=== PATIENT | male | born 1965 | race Two or more races ===

== ENCOUNTER 2020-05-10 20:06 | Emergency (ER) | payer OTHER ==
[~2020-05-10] VITALS: Ht 167.6 cm; Wt 85.7 kg
[2020-05-10] MEDS ORDERED: HYDROcodone/APAP 5/325 TABLET ONE (20:24)
[2020-05-10] MEDS ORDERED: HYDROcodone/APAP 5/325 TABLET PO ONE (20:30)
[2020-05-10 21:06] VITALS: BP 161/77
== END 2020-05-10 21:07 | disposition home or self-care (01) ==
LOC: ED 21:00
DX: K02.9 Dental caries, unspecified (principal)
CPT/HCPCS: 99283

== ENCOUNTER 2020-07-05 10:58 | Inpatient (IN) | payer OTHER ==
[~2020-07-05] VITALS: Ht 170.2 cm; Wt 75.7 kg
[2020-07-05] MEDS ORDERED: ACETAMINOPHEN 500 MG TABLET ONE (11:26)
[2020-07-05] MEDS ORDERED: ACETAMINOPHEN 500 MG TABLET PO ONE (11:30)
--- NOTE | 2020-07-05 11:59 | NUR ---
first contact with pt, started large bore iv, 2nd set bc drawn and sent. pt c/o body aches temp is 103.4 took tylenol 1 hour ago. requested order for meds from [facility].
[2020-07-05 12:03] LABS: MICROSCOPIC NOT IND
[2020-07-05 12:13] LABS: ALANINE AMINOTRANSFERASE 27 U/L (12-78); ALBUMIN 2.9 g/dL (3.4-5.0); ANION GAP 9 mmol/L (5-15); CALCIUM 9.2 mg/dL (8.5-10.1); CHLORIDE 100 mmol/L (98-107)
--- NOTE | 2020-07-05 12:14 | NUR ---
PT CAME IN CO OF BILAT FLANK PAIN X 2-3 DAYS. PT DENIES TRAUMA OR PAINFUL URINATION. PT RESTING IN [facility]. MEDICATED PER NOV. UA SENT. LABS SENT. BLANKET PROVIDED.
[2020-07-05 12:15] LABS: ALKALINE PHOSPHATASE 198 U/L (45-117); BILIRUBIN,TOTAL 0.7 mg/dL (0.2-1.0); CREATININE 0.99 mg/dL (0.7-1.3); TOTAL PROTEIN 7.5 g/dL (6.4-8.2)
[2020-07-05 12:29] LABS: BASOPHILS % (AUTO) 0 % (0-1); EOSINOPHILS % (AUTO) 0 % (1-7); LYMPHOCYTES % (AUTO) 14 % (22-44); MEAN CORPUSCULAR HEMOGLOBIN 31.7 pg (27.5-34.5); MEAN CORPUSCULAR HGB CONC 34.7 g/dL (33.2-36.2); MEAN PLATELET VOLUME 7.8 fL (7.4-10.4); MONOCYTES % (AUTO) 7 % (2-9); NEUTROPHILS % (AUTO) 79 % (42-75); PLATELET COUNT 181 x10^3/uL (130-400); RED BLOOD COUNT 5.54 x10^6/uL (4.38-5.82)
--- NOTE | 2020-07-05 12:46 | NUR ---
lactate back elevated, ivf wide open bag #1. requested abx from provided. vss
[2020-07-05 12:53] LABS: MD SCAN
[2020-07-05] MEDS ORDERED: CEFTRIAXONE PMX 1GM/50ML 50 ML ONE (12:57)
--- NOTE | 2020-07-05 13:03 | NUR ---
abx started, 2 sets bc already drawn and sent. 2nd liter of fluid bolus wide open, pt vs remain stable. will continue to monitor.
[2020-07-05] MEDS ORDERED: POTASSIUM CHLORIDE 20 MEQ TAB.ER.PRT ONE (13:37)
--- NOTE | 2020-07-05 13:43 | NUR ---
PCXR DONE. ADMIN OF KDUR DONE, NO SWALLOWING PROBLEMS. VSS. WILL CONTINUE TO MONITOR.
[2020-07-05] MEDS ORDERED: POTASSIUM CHLORIDE 20 MEQ TAB.ER.PRT PO ONE (14:00)
[2020-07-05] MEDS ORDERED: CEFTRIAXONE PMX 1GM/50ML 50 ML IVPB ONE (14:00)
[2020-07-05] MEDS ORDERED: SODIUM CHLORIDE 0.9% 1,000ML IVBOLUS ONE (14:00)
[2020-07-05] MEDS ORDERED: AZITHROMYCIN 500 MG in SODIUM CHLORIDE 0.9% 250 ML IV ONE (14:30)
--- NOTE | 2020-07-05 14:44 | NUR ---
iso cart and proper sign placement to outside of room. CN notified of covid pos status.
--- NOTE | 2020-07-05 14:50 | NUR ---
[phone] Daughter Shraddha [phone]
--- NOTE | 2020-07-05 14:58 | NUR ---
VSS, states feels a little better. 2nd abx infusing over hour. updated of covid pos status and re: policy on visitation.
[2020-07-05] MEDS ORDERED: ENALAPRILAT 1.25 MG/ML, 2ML IVPush PRN (16:30)
[2020-07-05] MEDS ORDERED: ONDANSETRON 2MG/ML, 2ML IVPush PRN (16:30)
[2020-07-05] MEDS ORDERED: ONDANSETRON ODT 4 MG PO PRN (16:30)
--- NOTE | 2020-07-05 16:34 | NUR ---
FAMILY CONTACT DAUGHTER ANUP [phone] WANTS HOSPITALIST TO CALL HER WITH POC.
--- NOTE | 2020-07-05 17:01 | NUR ---
NO CHANGE IN ASSESSMENT, WAITING FOR HOSPITALIST ADMIT.
[2020-07-05] MEDS ORDERED: DEXTROSE 50%, 50ML SYRINGE IVPush PRN (17:30)
[2020-07-05] MEDS ORDERED: DEXTROSE 4 GM TAB.CHEW PO PRN (17:30)
[2020-07-05] MEDS ORDERED: GLUCAGON 1 MG IM PRN (17:30)
--- NOTE | 2020-07-05 17:36 | NUR ---
HOSPITALIST SPOKE WITH /FAMILY VIA TRANSLATION.
--- NOTE | 2020-07-05 17:37 | NUR ---
UPDATED ON POLICIES RE: NO VISITATION.
--- NOTE | 2020-07-05 17:42 | NUR ---
pt dinner arrived, he is eating without any problems. vss. awaiting admission.
[2020-07-05 18:04] LABS: HCT (SEDRATE) 47.9 % (39.2-51.8)
[2020-07-05 18:10] LABS: INTERNATIONAL NORMALIZED RATIO 0.92 (0.93-1.1); PROTHROMBIN TIME 9.5 Seconds (9.6-11.5)
[2020-07-05] MEDS ORDERED: ACETAMINOPHEN 325 MG TABLET ONE (19:12)
[2020-07-05] MEDS: ACETAMINOPHEN 325 MG TABLET PO PRN (19:16)
--- NOTE | 2020-07-05 20:33 | NUR ---
ASSUMED CARE OF PT, ASSISTED PT TO BSC. VSS. CALL LIGHT WITHIN REACH.
--- NOTE | 2020-07-05 22:00 | NUR ---
REQUESTED INSULIN PEN FROM PHARMACY.
[2020-07-05] MEDS: INSULIN LISPRO 100 UNITS/ML, PEN SQ-INSULIN SCH (22:45)
--- NOTE | 2020-07-05 23:01 | NUR ---
REPORT GIVEN TO CEE ESPARZA.
--- NOTE | 2020-07-05 23:12 | NUR ---
Report recevied from VILMA Marti. This RN to assume care. Patient sleeping in hospital bed. REspirations even and unlabored.
[2020-07-05] MEDS: SODIUM CHLORIDE FLUSH 10ML SYR IVF SCH (23:13)
--- NOTE | 2020-07-06 02:20 | NUR ---
Patient resting in hospital bed with no complaints. Water provided.
--- NOTE | 2020-07-06 05:27 | NUR ---
Meal tray ordered.
--- NOTE | 2020-07-06 06:00 | NUR ---
Provided water. Patient has no other needs.
--- NOTE | 2020-07-06 06:55 | NUR ---
Report given to VILAM Bender. Patient care transferred.
--- NOTE | 2020-07-06 07:54 | NUR ---
RECIEVED REPORT FROM MIGUEL SHINE RN. PT RESTING IN BED. NADN. KAMARA. AWARE OF POC ON ADMISSION TO COVID UNIT.
[2020-07-06] MEDS: SODIUM CHLORIDE FLUSH 10ML SYR IVF SCH ×2 (07:55→21:18)
[2020-07-06] MEDS: INSULIN LISPRO 100 UNITS/ML, PEN SQ-INSULIN SCH ×4 (08:45→21:25)
--- NOTE | 2020-07-06 09:03 | NUR ---
PT MEDICATED PER NOV. PROVIDED W/ BREAKFAST TRAY.
--- NOTE | 2020-07-06 09:14 | NUR ---
REPORT GIVEN TO VILMA NAVARRETE.
--- NOTE | 2020-07-06 09:15 | NUR ---
report received from VILMA Bender, this RN assuming care.
--- NOTE | 2020-07-06 10:15 | NUR ---
PT RESTING ON HOSPITAL BED, RESPS EVEN AND UNLABORED, PT SPEAKING TO FAMILY/FRIEND ON PHONE WITHOUT DIFFICULTY. PT IS SINUS TACH RATE 90'S ON [employer] MANAGER WITH NO ECTOPY NOTED.
--- NOTE | 2020-07-06 11:00 | NUR ---
DR. FISCHER DISCUSSED WITH PT TO START TREATMENT OF COVID WITH REMDESEVIR, PT AGREED WITH TREATMENT PLAN, THIS RN WAS PRESENT DURING DISCUSSION.
--- NOTE | 2020-07-06 11:00 | NUR ---
PT'S SON UPDATED , SHAHEED. PHONE [phone]
--- NOTE | 2020-07-06 11:00 | NUR ---
report given to RN Figueroa at bedside, pt a&o, resps even and unlabored, cris.
--- NOTE | 2020-07-06 11:20 | NUR ---
REPORT FROM ROSALBA ESPARZA.
[2020-07-06] MEDS ORDERED: SENNOSIDES 8.6 MG TABLET PO PRN (11:30)
[2020-07-06] MEDS: ENOXAPARIN 40 MG/0.4 ML SQ SCH (11:30)
--- NOTE | 2020-07-06 12:04 | NUR ---
PT IN MRI.
[2020-07-06] MEDS ORDERED: ENOXAPARIN 40 MG/0.4 ML ONE (12:13)
[2020-07-06] MEDS ORDERED: THIAMINE 100MG TABLET ONE ×2 (12:13→20:48)
[2020-07-06] MEDS ORDERED: DEXAMETHASONE 4 MG/ML, 1ML ONE (12:13)
[2020-07-06] MEDS ORDERED: GADOTERATE 10 MMOL/20 ML SYR ONE (12:31)
--- NOTE | 2020-07-06 12:52 | NUR ---
PT'S RA SATURATION IS 85%, CHECKED PER MD ORDER. PLACED BACK ON 4L NC, PT SATURATION UP TO 93%.
[2020-07-06] MEDS ORDERED: ACETAMINOPHEN 325 MG TABLET ONE (12:54)
[2020-07-06] MEDS: ACETAMINOPHEN 325 MG TABLET PO PRN (12:59)
[2020-07-06] MEDS: DEXAMETHASONE 4 MG/ML, 1ML IVPush SCH (13:01)
[2020-07-06] MEDS: AZITHROMYCIN 500 MG in SODIUM CHLORIDE 0.9% 250 ML IV SCH (13:02)
[2020-07-06] MEDS: THIAMINE 100MG TABLET PO SCH ×2 (13:02→21:18)
--- NOTE | 2020-07-06 13:35 | NUR ---
CALL TO DR. FISCHER FOR UPDATE, REPORTED TO PT HAS FEVER OF 101.3 AND RA SAT DOWN TO 85% AND NOW REQUIRING 6L O2 NC. PER DR. FICSHER ORDER STAT ABG. ORDER VERIFIED AND PLACED.
[2020-07-06 13:53] LABS: BASOPHILS % (AUTO) 1 % (0-1); EOSINOPHILS % (AUTO) 0 % (1-7); LYMPHOCYTES % (AUTO) 27 % (22-44); MEAN CORPUSCULAR HEMOGLOBIN 31.3 pg (27.5-34.5); MEAN CORPUSCULAR HGB CONC 34.8 g/dL (33.2-36.2); MEAN PLATELET VOLUME 7.2 fL (7.4-10.4); MONOCYTES % (AUTO) 8 % (2-9); NEUTROPHILS % (AUTO) 65 % (42-75); PLATELET COUNT 202 x10^3/uL (130-400); RED BLOOD COUNT 4.94 x10^6/uL (4.38-5.82); RED CELL DISTRIBUTION WIDTH 13.1 % (9.4-14.8)
[2020-07-06 13:56] LABS: MD NO
[2020-07-06 13:57] LABS: ANION GAP 10 mmol/L (5-15); CALCIUM 8.7 mg/dL (8.5-10.1); CHLORIDE 102 mmol/L (98-107); CREATININE 0.61 mg/dL (0.7-1.3)
[2020-07-06] MEDS ORDERED: REMDESIVIR 200 MG in SODIUM CHLORIDE 0.9% 250 ML IVPB ONE (14:00)
[2020-07-06 14:03] LABS: D-DIMER 0.31 ug/mlFEU (0.00-0.52)
[2020-07-06 15:40] LABS: HCT (SEDRATE) 44.5 % (39.2-51.8)
[2020-07-06] MEDS: CHOLECALCIFEROL 5,000u TAB PO SCH (16:04)
--- NOTE | 2020-07-06 16:20 | NUR ---
CALL TO CT DEPT, PT'S IV MEDS FINISHED INFUSING AND OKAY FOR PT TO GO FOR CT.
--- NOTE | 2020-07-06 16:50 | NUR ---
PT TRANSPORTED TO CT.
[2020-07-06] MEDS ORDERED: OMNIPAQUE 350 MG/ML, 100ML BOTTLE ONE (17:14)
[2020-07-06] MEDS ORDERED: CEFTRIAXONE PMX 1GM/50ML 50 ML ONE (17:19)
[2020-07-06] MEDS: CEFTRIAXONE PMX 1GM/50ML 50 ML IV SCH (17:23)
--- NOTE | 2020-07-06 17:57 | NUR ---
Bird vann in [facility] - 07/06/20 at 1758 by DANIELLA TASK RN: MEDICATION REQUEST SENT TO PHARMACY. PT WITH NO NEEDS AT THIS TIME
--- NOTE | 2020-07-06 17:58 | NUR ---
TASK RN: MEDICATION REQUEST SENT TO PHARMACY. PT WITH NO NEEDS AT THIS TIME
[2020-07-06] MEDS: ASCORBIC ACID 500 MG TABLET PO SCH (19:27)
--- NOTE | 2020-07-06 20:01 | NUR ---
VALENTINA TIMMONS [phone], WILL CALL FOR UPDATE TOMORROW, WOULD LIKE A CALL WHEN PT TRANSFERS.
--- NOTE | 2020-07-06 22:54 | NUR ---
REPORT RECEIVED FROM VILMA PISANO. PLAN OF CARE DISCUSSED
--- NOTE | 2020-07-07 00:04 | NUR ---
PATIENT SLEEPING, RESPIRATIONS EVEN AND UNLABORED. VSS, NADN, MONITORING IN PLACE, CALL LIGHT IN REACH
--- NOTE | 2020-07-07 01:00 | NUR ---
PATIENT SLEEPING, RESPIRATIONS EVEN AND UNLABORED. VSS, NADN, MONITORING IN PLACE, CALL LIGHT IN REACH
--- NOTE | 2020-07-07 02:15 | NUR ---
PATIENT SLEEPING, RESPIRATIONS EVEN AND UNLABORED. VSS, NADN, MONITORING IN PLACE, CALL LIGHT IN REACH. REMDESIVIR RESTARTED IT WAS NOT INFUSING. APPROX 50ML LEFT IN BAG
--- NOTE | 2020-07-07 02:53 | NUR ---
Report received from VILMA Diez. This RN to assume care.
--- NOTE | 2020-07-07 03:14 | NUR ---
Patient sleeping in hospital bed. Respirations even and unlabored. No interventions needed at this time.
[2020-07-07] MEDS ORDERED: PANTOPRAZOLE 20MG TABLET ONE (03:25)
[2020-07-07 05:29] LABS: BASOPHILS % (AUTO) 0 % (0-1); EOSINOPHILS % (AUTO) 0 % (1-7); LYMPHOCYTES % (AUTO) 30 % (22-44); MEAN CORPUSCULAR HEMOGLOBIN 31.8 pg (27.5-34.5); MEAN CORPUSCULAR HGB CONC 34.9 g/dL (33.2-36.2); MEAN PLATELET VOLUME 7.4 fL (7.4-10.4); MONOCYTES % (AUTO) 11 % (2-9); NEUTROPHILS % (AUTO) 58 % (42-75); PLATELET COUNT 231 x10^3/uL (130-400); RED CELL DISTRIBUTION WIDTH 13.2 % (9.4-14.8)
[2020-07-07 05:31] LABS: MD NO
[2020-07-07 05:38] LABS: ANION GAP 8 mmol/L (5-15); CHLORIDE 105 mmol/L (98-107)
[2020-07-07] MEDS: PANTOPRAZOLE 40MG TABLET PO SCH (05:53)
--- NOTE | 2020-07-07 06:43 | NUR ---
Report given to VILMA Simmons. Patient care transferred.
[2020-07-07] MEDS: THIAMINE 100MG TABLET PO SCH ×2 (08:49→21:09)
[2020-07-07] MEDS: ASCORBIC ACID 500 MG TABLET PO SCH ×2 (08:49→19:27)
[2020-07-07] MEDS: CHOLECALCIFEROL 5,000u TAB PO SCH (08:49)
[2020-07-07] MEDS: SODIUM CHLORIDE FLUSH 10ML SYR IVF SCH ×2 (09:00→21:00)
--- NOTE | 2020-07-07 09:04 | NUR ---
MEAL TRAY PROVIDED. PT ON 6LITERS (UP FROM 4L) VIA VT 02 SAT 91%. PROVIDER NOTFIED
[2020-07-07] MEDS: INSULIN LISPRO 100 UNITS/ML, PEN SQ-INSULIN SCH ×4 (09:55→19:23)
--- NOTE | 2020-07-07 10:25 | NUR ---
REPORT FROM VILMA WETZEL. ABIGAIL COLON REQUESTED FROM PHARMACY. PT RESTING IN [facility], NO COMPLAINTS AT THIS TIME.
[2020-07-07] MEDS: AZITHROMYCIN 500 MG in SODIUM CHLORIDE 0.9% 250 ML IV SCH (11:13)
[2020-07-07 11:26] LABS: BILIRUBIN,TOTAL 0.5 mg/dL (0.2-1.0)
[2020-07-07] MEDS: INSULIN GLARGINE 100 UNITS/ML, PEN SQ-INSULIN SCH ×2 (11:35→21:09)
[2020-07-07] MEDS ORDERED: DEXAMETHASONE 4 MG/ML, 1ML ONE (12:13)
[2020-07-07] MEDS ORDERED: ENOXAPARIN 40 MG/0.4 ML ONE (12:13)
[2020-07-07] MEDS: ENOXAPARIN 40 MG/0.4 ML SQ SCH (12:16)
[2020-07-07] MEDS: DEXAMETHASONE 4 MG/ML, 1ML IVPush SCH (12:16)
[2020-07-07] MEDS: REMDESIVIR 100 MG in SODIUM CHLORIDE 0.9% 250 ML IVPB SCH (14:37)
--- NOTE | 2020-07-07 14:51 | NUR ---
PT POC GLUCOSE DONE, RESULT WAS 256. PT MEDICATED PER NOV, MEAL TRAY GIVEN. PT HAS NO OTHER COMPLAINTS AT THIS TIME.
[2020-07-07] MEDS ORDERED: OXYcodone IR 5MG TABLET PO PRN (16:30)
[2020-07-07] MEDS ORDERED: CEFTRIAXONE PMX 1GM/50ML 50 ML ONE (17:23)
[2020-07-07] MEDS: CEFTRIAXONE PMX 1GM/50ML 50 ML IV SCH (17:28)
[2020-07-07] MEDS ORDERED: ASCORBIC ACID 500 MG TABLET ONE (19:26)
--- NOTE | 2020-07-07 19:33 | NUR ---
PT GIVEN MEAL TRAY, PT REPORTS NO COMPLAINTS AT THIS TIME.
[2020-07-07] MEDS ORDERED: THIAMINE 100MG TABLET ONE (21:03)
--- NOTE | 2020-07-07 21:23 | NUR ---
PT MEDICATED PER EMAR, RESTING IN [facility], AND REPORTS NO COMPLAINTS AT THIS TIME.
--- NOTE | 2020-07-07 22:05 | NUR ---
REPORT GIVEN TO VILMA HARDY.
--- NOTE | 2020-07-07 22:39 | NUR ---
Pt resting quietly on bed. Pt awakened easily for change of shift assessment. Pt remains on 5L NC, tachypnea noted. Pt alert and oriented. Pt asking for water and snacks. Both provided. Pt remains on full monitors.
--- NOTE | 2020-07-08 00:01 | NUR ---
Pt sleeping on bed. Pt seen repositioning self. VSS.
--- NOTE | 2020-07-08 01:54 | NUR ---
Report given to floor RN.
--- NOTE | 2020-07-08 01:55 | NUR ---
Pt sleeping. NAD. VSS.
--- NOTE | 2020-07-08 02:41 | NUR ---
Pt transferred to floor. Pt status remains unchanged.
[2020-07-08 03:30] VITALS: BP 122/73
[2020-07-08] MEDS: PANTOPRAZOLE 40MG TABLET PO SCH (05:47)
[2020-07-08 06:22] LABS: INTERNATIONAL NORMALIZED RATIO 0.97 (0.93-1.1)
[2020-07-08 06:25] LABS: ALANINE AMINOTRANSFERASE 51 U/L (12-78); ALBUMIN 2.6 g/dL (3.4-5.0); ANION GAP 8 mmol/L (5-15); CALCIUM 8.7 mg/dL (8.5-10.1); CHLORIDE 104 mmol/L (98-107); CREATININE 0.68 mg/dL (0.7-1.3)
[2020-07-08 06:27] LABS: ALKALINE PHOSPHATASE 210 U/L (45-117); BILIRUBIN,TOTAL 0.5 mg/dL (0.2-1.0); TOTAL PROTEIN 7.3 g/dL (6.4-8.2)
[2020-07-08] MEDS: INSULIN LISPRO 100 UNITS/ML, PEN SQ-INSULIN SCH ×4 (07:00→20:31)
[2020-07-08] MEDS: ASCORBIC ACID 500 MG TABLET PO SCH ×2 (08:50→17:30)
[2020-07-08] MEDS: CHOLECALCIFEROL 5,000u TAB PO SCH (08:50)
[2020-07-08] MEDS: SODIUM CHLORIDE FLUSH 10ML SYR IVF SCH ×2 (08:50→20:31)
[2020-07-08] MEDS: THIAMINE 100MG TABLET PO SCH ×2 (08:50→20:31)
[2020-07-08 09:24] VITALS: BP 116/61
[2020-07-08] MEDS: INSULIN GLARGINE 100 UNITS/ML, PEN SQ-INSULIN SCH ×2 (11:24→20:30)
[2020-07-08] MEDS: AZITHROMYCIN 500 MG in SODIUM CHLORIDE 0.9% 250 ML IV SCH (12:44)
[2020-07-08] MEDS: ENOXAPARIN 40 MG/0.4 ML SQ SCH (12:44)
[2020-07-08] MEDS: DEXAMETHASONE 4 MG/ML, 1ML IVPush SCH (12:44)
[2020-07-08 14:20] VITALS: BP 89/49
[2020-07-08] MEDS: REMDESIVIR 100 MG in SODIUM CHLORIDE 0.9% 250 ML IVPB SCH (15:14)
[2020-07-08] MEDS: CEFTRIAXONE PMX 1GM/50ML 50 ML IV SCH (17:30)
[2020-07-08 19:11] VITALS: BP 104/52
[2020-07-09 00:32] VITALS: BP 96/54
[2020-07-09] MEDS: PANTOPRAZOLE 40MG TABLET PO SCH (05:01)
[2020-07-09 05:39] LABS: ALBUMIN 2.6 g/dL (3.4-5.0); ANION GAP 5 mmol/L (5-15); CALCIUM 8.7 mg/dL (8.5-10.1); CHLORIDE 103 mmol/L (98-107)
[2020-07-09 05:42] LABS: ALANINE AMINOTRANSFERASE 47 U/L (12-78); ALKALINE PHOSPHATASE 176 U/L (45-117); BILIRUBIN,TOTAL 0.7 mg/dL (0.2-1.0); CREATININE 0.67 mg/dL (0.7-1.3)
[2020-07-09 07:10] VITALS: BP 100/57
[2020-07-09] MEDS: THIAMINE 100MG TABLET PO SCH ×2 (07:54→20:26)
[2020-07-09] MEDS: CHOLECALCIFEROL 5,000u TAB PO SCH (07:54)
[2020-07-09] MEDS: ASCORBIC ACID 500 MG TABLET PO SCH ×2 (07:54→17:06)
[2020-07-09] MEDS: INSULIN LISPRO 100 UNITS/ML, PEN SQ-INSULIN SCH ×4 (07:55→20:26)
[2020-07-09] MEDS: SODIUM CHLORIDE FLUSH 10ML SYR IVF SCH ×2 (07:55→20:27)
[2020-07-09] MEDS: INSULIN GLARGINE 100 UNITS/ML, PEN SQ-INSULIN SCH (07:55)
[2020-07-09 12:07] VITALS: BP 98/60
[2020-07-09] MEDS: AZITHROMYCIN 500 MG in SODIUM CHLORIDE 0.9% 250 ML IV SCH (12:29)
[2020-07-09] MEDS: DEXAMETHASONE 4 MG/ML, 1ML IVPush SCH (12:29)
[2020-07-09] MEDS: ENOXAPARIN 40 MG/0.4 ML SQ SCH (12:30)
[2020-07-09] MEDS: REMDESIVIR 100 MG in SODIUM CHLORIDE 0.9% 250 ML IVPB SCH (15:56)
[2020-07-09] MEDS: CEFTRIAXONE PMX 1GM/50ML 50 ML IV SCH (18:02)
[2020-07-09 19:58] VITALS: BP 104/63
[2020-07-09] MEDS ORDERED: INSULIN GLARGINE 100 UNITS/ML, PEN SQ-INSULIN SCH (21:00)
[2020-07-10 01:02] VITALS: BP 111/75
[2020-07-10] MEDS: PANTOPRAZOLE 40MG TABLET PO SCH (05:18)
[2020-07-10 06:15] LABS: ALBUMIN 2.5 g/dL (3.4-5.0); ANION GAP 9 mmol/L (5-15); CALCIUM 8.8 mg/dL (8.5-10.1); CHLORIDE 104 mmol/L (98-107)
[2020-07-10 06:19] LABS: ALANINE AMINOTRANSFERASE 54 U/L (12-78); ALKALINE PHOSPHATASE 168 U/L (45-117); BILIRUBIN,TOTAL 0.6 mg/dL (0.2-1.0); CREATININE 0.65 mg/dL (0.7-1.3); TOTAL PROTEIN 6.6 g/dL (6.4-8.2)
[2020-07-10 06:38] VITALS: BP 115/66
[2020-07-10] MEDS: INSULIN LISPRO 100 UNITS/ML, PEN SQ-INSULIN SCH ×4 (07:00→23:15)
[2020-07-10] MEDS: ASCORBIC ACID 500 MG TABLET PO SCH ×2 (08:00→17:24)
[2020-07-10] MEDS: SODIUM CHLORIDE FLUSH 10ML SYR IVF SCH ×2 (08:19→23:09)
[2020-07-10] MEDS: THIAMINE 100MG TABLET PO SCH ×2 (08:20→23:09)
[2020-07-10] MEDS: CHOLECALCIFEROL 5,000u TAB PO SCH (08:20)
[2020-07-10] MEDS: INSULIN GLARGINE 100 UNITS/ML, PEN SQ-INSULIN SCH ×2 (08:25→23:15)
[2020-07-10] MEDS ORDERED: FUROSEMIDE 20 MG/2 ML IV ONE (08:30)
[2020-07-10] MEDS ORDERED: POTASSIUM CHLORIDE 20 MEQ TAB.ER.PRT PO ONE (08:30)
[2020-07-10] MEDS: AZITHROMYCIN 500 MG in SODIUM CHLORIDE 0.9% 250 ML IV SCH (11:20)
[2020-07-10] MEDS: DEXAMETHASONE 4 MG/ML, 1ML IVPush SCH (11:21)
[2020-07-10] MEDS: ENOXAPARIN 40 MG/0.4 ML SQ SCH (11:21)
[2020-07-10] MEDS: REMDESIVIR 100 MG in SODIUM CHLORIDE 0.9% 250 ML IVPB SCH (15:41)
[2020-07-10 15:56] VITALS: BP 105/68
[2020-07-10] MEDS: CEFTRIAXONE PMX 1GM/50ML 50 ML IV SCH (17:24)
[2020-07-10 20:37] VITALS: BP 109/71
[2020-07-11 01:41] VITALS: BP 107/65
[2020-07-11] MEDS: PANTOPRAZOLE 40MG TABLET PO SCH (06:15)
[2020-07-11 06:44] VITALS: BP 110/68
[2020-07-11] MEDS: INSULIN LISPRO 100 UNITS/ML, PEN SQ-INSULIN SCH ×3 (07:00→16:18)
[2020-07-11] MEDS: THIAMINE 100MG TABLET PO SCH (07:49)
[2020-07-11] MEDS: ASCORBIC ACID 500 MG TABLET PO SCH ×2 (07:49→16:17)
[2020-07-11] MEDS: SODIUM CHLORIDE FLUSH 10ML SYR IVF SCH (07:51)
[2020-07-11] MEDS: INSULIN GLARGINE 100 UNITS/ML, PEN SQ-INSULIN SCH (08:27)
[2020-07-11] MEDS ORDERED: methylPREDNISolone SOD SUCC 40 MG/ML IV SCH (09:00)
[2020-07-11 09:27] LABS: BASOPHILS % (AUTO) 0 % (0-1); EOSINOPHILS % (AUTO) 0 % (1-7); LYMPHOCYTES % (AUTO) 20 % (22-44); MEAN CORPUSCULAR HEMOGLOBIN 31.2 pg (27.5-34.5); MEAN CORPUSCULAR HGB CONC 34.5 g/dL (33.2-36.2); MEAN PLATELET VOLUME 7.2 fL (7.4-10.4); MONOCYTES % (AUTO) 6 % (2-9); NEUTROPHILS % (AUTO) 74 % (42-75); PLATELET COUNT 379 x10^3/uL (130-400); RED CELL DISTRIBUTION WIDTH 13.1 % (9.4-14.8)
[2020-07-11 09:33] LABS: MD NO
[2020-07-11 09:37] LABS: ALBUMIN 2.5 g/dL (3.4-5.0); ANION GAP 10 mmol/L (5-15); CALCIUM 8.5 mg/dL (8.5-10.1); CHLORIDE 104 mmol/L (98-107)
[2020-07-11 09:41] LABS: ALANINE AMINOTRANSFERASE 43 U/L (12-78); ALKALINE PHOSPHATASE 161 U/L (45-117); BILIRUBIN,TOTAL 0.7 mg/dL (0.2-1.0); CREATININE 0.77 mg/dL (0.7-1.3); TOTAL PROTEIN 6.7 g/dL (6.4-8.2)
[2020-07-11] MEDS: AZITHROMYCIN 500 MG in SODIUM CHLORIDE 0.9% 250 ML IV SCH (10:59)
[2020-07-11] MEDS: ENOXAPARIN 40 MG/0.4 ML SQ SCH (10:59)
[2020-07-11] MEDS: CHOLECALCIFEROL 5,000u TAB PO SCH (11:10)
[2020-07-11 12:11] VITALS: BP 101/63
[2020-07-11] MEDS: CEFTRIAXONE PMX 1GM/50ML 50 ML IV SCH (16:19)
== END 2020-07-11 18:10 | disposition home or self-care (01) | DRG 871 ==
LOC: ED 16:25 → SUATTDRO 16:26 → EDIP 16:26 → ED 16:39 → 4EST 07-08 03:14
PROVIDERS: ADMIT Hospitalist; ATTEND Hospitalist
PROC: XW033E5 Introduction of Remdesivir Anti-infective into Peripheral Vein, Percutaneous Approach, New Technology Group 5 (ICD-10-PCS; principal; 2020-07-07)
PROC: XW033E5 Introduction of Remdesivir Anti-infective into Peripheral Vein, Percutaneous Approach, New Technology Group 5 (ICD-10-PCS; 2020-07-08)
PROC: XW033E5 Introduction of Remdesivir Anti-infective into Peripheral Vein, Percutaneous Approach, New Technology Group 5 (ICD-10-PCS; 2020-07-09)
PROC: XW033E5 Introduction of Remdesivir Anti-infective into Peripheral Vein, Percutaneous Approach, New Technology Group 5 (ICD-10-PCS; 2020-07-10)
DX: A41.89 Other specified sepsis (principal); E43 Unspecified severe protein-calorie malnutrition; J12.89 Other viral pneumonia; J96.01 Acute respiratory failure with hypoxia; U07.1 COVID-19; M48.061 Spinal stenosis, lumbar region without neurogenic claudication; R31.9 Hematuria, unspecified; E11.9 Type 2 diabetes mellitus without complications; Z68.26 Body mass index [BMI] 26.0-26.9, adult; Z79.899 Other long term (current) drug therapy
CPT/HCPCS: 36415; 36600; 71045; 71275; 72158; 80048; 80053; 81003; 82247; 82728; 82803; 82962; 83036; 83605; 83615; 83690; 84145; 84450; 84460; 85025; 85379; 85384; 85610; 85651; 86140; 87040; 87635; 96361; 96365; 99285; G0378; J0456; J0696; J1100; J1650; Q9967; A9575; J1815; J1940; J2920; J7030; J7050

== ENCOUNTER → 2020-07-30 | Outpatient (CLI) | payer OTHER ==
[2020-07-30 07:57] LABS: BASOPHILS % (AUTO) 1 % (0-1); EOSINOPHILS % (AUTO) 4 % (1-7); LYMPHOCYTES % (AUTO) 37 % (22-44); MEAN CORPUSCULAR HEMOGLOBIN 31.2 pg (27.5-34.5); MEAN CORPUSCULAR HGB CONC 34.4 g/dL (33.2-36.2); MEAN PLATELET VOLUME 6.8 fL (7.4-10.4); MONOCYTES % (AUTO) 8 % (2-9); NEUTROPHILS % (AUTO) 50 % (42-75); PLATELET COUNT 334 x10^3/uL (130-400); RED BLOOD COUNT 5.41 x10^6/uL (4.38-5.82); RED CELL DISTRIBUTION WIDTH 13.9 % (9.4-14.8)
[2020-07-30 08:03] LABS: ALBUMIN 3.4 g/dL (3.4-5.0); ANION GAP 5 mmol/L (5-15); CALCIUM 9.1 mg/dL (8.5-10.1); CHLORIDE 103 mmol/L (98-107); MD NO
[2020-07-30 08:12] LABS: ALANINE AMINOTRANSFERASE 28 U/L (12-78); ALKALINE PHOSPHATASE 156 U/L (45-117); BILIRUBIN,TOTAL 0.5 mg/dL (0.2-1.0); CHOL/HDL RATIO 5.3; CHOLESTEROL, TOTAL 246 mg/dL (140-239); HDL CHOL % 19 % (26-37); HDL CHOLESTEROL (DIRECT) 46 mg/dL (40-60); LDL CHOLESTEROL,CALCULATED 165 mg/dL (54-169); LDL/HDL RATIO 3.6 (0.5-3.0); TRIGLYCERIDES 173 mg/dL (50-200); VLDL CHOLESTEROL 35 mg/dL (0-25)
== END | disposition home or self-care (01) ==
LOC: LAB 07:27
PROVIDERS: ATTEND Nurse Practitioner Family
DX: E11.9 Type 2 diabetes mellitus without complications (principal)
CPT/HCPCS: 36415; 80053; 80061; 82043; 82570; 84443; 85025

== ENCOUNTER → 2020-10-18 | Outpatient (CLI) | payer OTHER ==
[2020-10-18 08:55] LABS: ALANINE AMINOTRANSFERASE 27 U/L (12-78); ALBUMIN 3.9 g/dL (3.4-5.0); ANION GAP 5 mmol/L (5-15); CALCIUM 9.1 mg/dL (8.5-10.1); CHLORIDE 105 mmol/L (98-107); CHOLESTEROL, TOTAL 205 mg/dL (140-239)
[2020-10-18 08:58] LABS: ALKALINE PHOSPHATASE 132 U/L (45-117); BILIRUBIN,TOTAL 0.6 mg/dL (0.2-1.0); CHOL/HDL RATIO 4.4; HDL CHOL % 23 % (26-37); HDL CHOLESTEROL (DIRECT) 47 mg/dL (40-60); LDL CHOLESTEROL,CALCULATED 122 mg/dL (54-169); LDL/HDL RATIO 2.6 (0.5-3.0); TOTAL PROTEIN 7.7 g/dL (6.4-8.2); TRIGLYCERIDES 179 mg/dL (50-200); VLDL CHOLESTEROL 36 mg/dL (0-25)
== END | disposition home or self-care (01) ==
LOC: RAD 08:22
PROVIDERS: ATTEND Nurse Practitioner Family
DX: U07.1 COVID-19 (principal); E11.9 Type 2 diabetes mellitus without complications; E78.5 Hyperlipidemia, unspecified
CPT/HCPCS: 36415; 71045; 80053; 80061; 83036

== ENCOUNTER → 2020-11-28 | Outpatient (CLI) | payer OTHER ==
[2020-11-28 09:08] LABS: ALANINE AMINOTRANSFERASE 34 U/L (12-78); ANION GAP 6 mmol/L (5-15); CALCIUM 8.7 mg/dL (8.5-10.1); CHLORIDE 110 mmol/L (98-107); CREATININE 0.71 mg/dL (0.7-1.3)
[2020-11-28 09:10] LABS: ALKALINE PHOSPHATASE 110 U/L (45-117); BILIRUBIN,TOTAL 0.7 mg/dL (0.2-1.0); TOTAL PROTEIN 7.6 g/dL (6.4-8.2)
== END | disposition home or self-care (01) ==
LOC: LAB 08:33
PROVIDERS: ATTEND Family Medicine
DX: E11.69 Type 2 diabetes mellitus with other specified complication (principal)
CPT/HCPCS: 36415; 80053; 83036